=== PATIENT | female | born 1960 | race Hispanic/Latino ===

== ENCOUNTER 2016-12-06 09:42 | Inpatient (IN) | payer MEDICARE, MEDICAID, OTHER ==
--- NOTE | 2016-12-06 09:55 | ED PDOC ---
Arrival/HPI - General Time Seen by Provider: 12/06/16 09:44 Historian: Patient, EMS - History of Present Illness Narrative History of Present Illness (Text): 12/06/16 09:52 56 y/o female, pmh including htn/hyponatremia/pityriasis roscea, psychiatric history of bipolar/ocd/drug abuse/depression/suicidal ideation, nkda, biba for anxiety and suicidal ideation x 2 days. Pt. stated that she stopped her bipolar medication about 1 month ago, been crying alot and feeling suicidal due to her fiance jumped off the balcony which is on her current apartment, stated that she has been seeing him spiritually and telling her to jump off the balcony , no chest pain or shortness of breath, no change in vision, no headache or neck pain, no other medical or psychological complaints. Past Medical History - Provider Review Nursing Documentation Reviewed: Yes - Tetanus Immunization Tetanus Immunization: Unknown - Cardiac Hx Cardiac Disorders: No - Pulmonary Hx Respiratory Disorders: No - Neurological Hx Neurological Disorder: Yes HX Cerebrovascular Accident: No Hx Seizures: Yes - HEENT Hx HEENT Disorder: No - Renal Hx Renal Disorder: No - Endocrine/Metabolic Hx Endocrine Disorders: No - Hematological/Oncological Hx Blood Disorders: No Hx Cancer: No - Integumentary Hx Dermatological Disorder: No - Musculoskeletal/Rheumatological Hx Musculoskeletal Disorders: No Hx Falls: No - Gastrointestinal Hx Gastrointestinal Disorders: No - Genitourinary/Gynecological Hx Genitourinary Disorders: Yes Hx Sexually Transmitted Diseases: Yes (Herpes) - Psychiatric Hx Psychophysiologic Disorder: Yes (SUICIDAL) Hx Bipolar Disorder: Yes Hx Substance Use: Yes (crack) Other/Comment: Bordeline personality disorder - Past Surgical History Past Surgical History: Non-Contributing - Surgical History Hx Tubal Ligation: Yes Other/Comment: tubal ligation - Anesthesia Hx Anesthesia: Yes Hx Anesthesia Reactions: No Hx Malignant Hyperthermia: No - Suicidal Assessment Feels Threatened In Home Enviroment: No Family/Social History - Physician Review Nursing Documentation Reviewed: Yes Family/Social History: Unknown Family HX Smoking Status: Never Smoked Hx Alcohol Use: Yes (pt states she "binge drinks" 3 x week) Hx Substance Use: Yes (crack) Hx Substance Use Treatment: No Allergies/Home Meds Allergies/Adverse Reactions: Allergies cats Allergy (Uncoded 07/21/16 12:55) SHORTNESS OF BREATH Review of Systems - Review of Systems Constitutional: absent: Fatigue, Fevers Eyes: absent: Vision Changes ENT: absent: Hearing Changes Respiratory: absent: SOB, Cough Cardiovascular: absent: Chest Pain Gastrointestinal: absent: Abdominal Pain, Nausea, Vomiting Neurological: absent: Headache, Dizziness Psychiatric: Anxiety, Depression, Suicidal Ideation Physical Exam Vital Signs Temp Pulse Resp BP Pulse Ox 12/06/16 09:43 98.1 F 80 18 138/89 100 - Systems Exam Head: Present: Atraumatic, Normocephalic Pupils: Present: PERRL Extroacular Muscles: Present: EOMI Conjunctiva: Present: Normal Mouth: Present: Moist Mucous Membranes Neck: Present: Normal Range of Motion Respiratory/Chest: Present: Clear to Auscultation, Good Air Exchange. No: Respiratory Distress, Accessory Muscle Use Cardiovascular: Present: Regular Rate and Rhythm, Normal S1, S2. No: Murmurs Abdomen: Present: Normal Bowel Sounds. No: Tenderness, Distention, Peritoneal Signs Back: Present: Normal Inspection Upper Extremity: Present: Normal Inspection. No: Cyanosis, Edema Lower Extremity: Present: Normal Inspection. No: Edema Neurological: Present: GCS=15, Speech Normal, Motor Func Grossly Intact, Gait Normal, Memory Normal Skin: Present: Warm, Dry, Normal Color. No: Rashes Psychiatric: Present: Alert, Oriented x 3, Normal Insight, Normal Concentration , Anxious, Depressed Mood, Suicidal Ideation, Hallucinations Medical Decision Making ED Course and Treatment: 12/06/16 09:55 -labs/ua/uds -ekg/chest xray -PES paged and will come to evaluate the patient 12/06/16 11:32 -NSR @ 84 BPM, no ST elevation or depression, no T wave inversion, compared with previous ekg. -chest xray show no active disease -Labs are non-significiant with chronic hyponetremia 130 -PES Anaise evaluated the patient and discussed with the psychiatrist, suggest to admit psychiatrically as bipolar disorder to DR. Ca Turpin's service -I discussed with Dr. Norton about the case and he will put in the admission order. - Lab Interpretations Lab Results: 12/06/16 10:06 12/06/16 10:06 Lab Results 12/06/16 10:45: Urine Opiates Screen Negative, Urine Methadone Screen Negative, Ur Barbiturates Screen Negative, Ur Phencyclidine Scrn Negative, Ur Amphetamines Screen Negative, U Benzodiazepines Scrn Negative, U Oth Cocaine Metabols Negative, U Cannabinoids Screen Negative 12/06/16 10:45: Urine Color Yellow, Urine Appearance Clear, Urine pH 7.0, Ur Specific [place] <= 1.005, Urine Protein Negative, Urine Glucose (UA) Negative, Urine Ketones Trace H, Urine Blood Small H, Urine Nitrate Negative, Urine Bilirubin Negative, Urine Urobilinogen 0.2, Ur Leukocyte Esterase Negative, Urine RBC 0 - 2, Urine WBC 0 - 2 12/06/16 10:06: Alcohol, Quantitative < 10 12/06/16 10:06: Salicylates 13, Acetaminophen < 10.0 L 12/06/16 10:06: Sodium 130 L, Potassium 3.9, Chloride 95 L, Carbon Dioxide 22, Anion Gap 17, BUN 10, Creatinine 0.6, Est GFR ( Amer) > 60, Est GFR (Non- Af Amer) > 60, Random Glucose 104, Calcium 9.5, Total Bilirubin 0.4, AST 86 H, ALT 114 H, Alkaline Phosphatase 99, Total Protein 7.4, Albumin 4.3, Globulin 3.1 , Albumin/Globulin Ratio 1.4 12/06/16 10:06: WBC 6.6, RBC 4.06, Hgb 12.4, Hct 36.0, MCV 88.7, MCH 30.5, MCHC 34.4, RDW 13.7, Plt Count 268, MPV 9.2, Gran % 59.7, Lymph % (Auto) 28.5, [place] % (Auto) 8.0 H, Eos % (Auto) 3.5, Baso % (Auto) 0.3, Gran # 3.97, Lymph # 1.9, [place] # 0.5, Eos # 0.2, Baso # 0.02 I have reviewed the lab results: Yes Interpretation: No clinic. lab abnormalty - RAD Interpretation Radiology Orders: 12/06/16 10:06 CHEST PORTABLE [RAD] Stat no active disease Child Care Education Coordinator: Radiologist - EKG Interpretation EKG Interpretation (Text): 12/06/16 10:11 NSR @ 84 BPM, no ST elevation or depression, no T wave inversion, compared with previous ekg. Interpreted by ED Physician: Yes Type: 12 lead EKG Comparison: Com.w/previous EKG - PA / SKID ADZER / Resident Statement MD/DO has reviewed & agrees with the documentation as recorded. Disposition/Present on Arrival - Present on Arrival Any Indicators Present on Arrival: No History of DVT/PE: No History of Uncontrolled Diabetes: No Urinary Catheter: No History of Decub. Ulcer: No History Surgical Site Infection Following: None - Disposition Have Diagnosis and Disposition been Completed?: Yes Diagnosis: Bipolar disorder, curr episode mixed, severe, w/o psychotic features Disposition: HOSPITALIZED Disposition Time: 09:56 Patient Plan: Admission Condition: STABLE
[2016-12-06 10:11] VITALS: BMI 25.7
[2016-12-06 10:19] LABS: BASO # 0.02 K/mm3 (0.0-2.0); BASO % 0.3 % (0.0-3.0); EOS # 0.2 (0.0-0.7); EOS % 3.5 % (1.5-5.0); GRAN # 3.97 (1.4-6.5); GRAN % 59.7 % (50.0-68.0); HEMOGLOBIN 12.4 gm/dL (12.0-16.0); LYMPH # 1.9 (1.2-3.4); LYMPH % 28.5 % (22.0-35.0); MEAN CELL VOLUME 88.7 fL (80.0-105.0); MEAN CORPUSCULAR HEMOGLOBIN 30.5 pg (25.0-35.0); MEAN CORPUSCULAR HGB CONC 34.4 g/dl (31.0-37.0); MEAN PLATELET VOLUME 9.2 fl (7.0-11.0); MONO # 0.5 (0.1-0.6); PLATELET COUNT 268 10^3/uL (120.0-450.0); RBC 4.06 10^6/uL (3.5-6.1); RED CELL DISTRIBUTION WIDTH 13.7 % (11.5-14.5); WHITE BLOOD COUNT 6.6 10^3/ul (4.5-11.0)
[2016-12-06 10:28] LABS: ALB/GLOB RATIO 1.4 (1.1-1.8); ALBUMIN 4.3 g/dL (3.0-4.8); ALT/SGPT 114 U/L (7-56); AST/SGOT 86 U/L (15-39); BLOOD UREA NITROGEN 10 mg/dL (7-21); CALCIUM 9.5 mg/dL (8.4-10.5); GFR AFRICAN-AMERICAN > 60; GFR NON-AFRICAN AMERICAN > 60
[2016-12-06 10:29] LABS: SALICYLATE 13 mg/dL (2.0-20.0)
[2016-12-06 10:30] LABS: ACETAMINOPHEN < 10.0 ug/ml (10.0-20.0)
[2016-12-06 10:54] LABS: URINE APPEARANCE CLEAR (CLEAR); URINE BILIRUBIN NEGATIVE (NEGATIVE); URINE BLOOD SMALL (NEGATIVE); URINE COLOR YELLOW (YELLOW); URINE GLUCOSE (UA) NEGATIVE (NEGATIVE); URINE LEUKOCYTE ESTERASE NEGATIVE Leu/uL (NEGATIVE); URINE NITRATE NEGATIVE (NEGATIVE); URINE PROTEIN NEGATIVE mg/dL (<30 mg/dL); URINE UROBILINOGEN 0.2 E.U./dL (<1 E.U./dL)
--- NOTE | 2016-12-06 10:54 | RAD ---
HISTORY: medical clearance COMPARISON: 05/08/2016 FINDINGS: LUNGS: No active pulmonary disease. PLEURA: No significant pleural effusion identified, no pneumothorax apparent. CARDIOVASCULAR: Normal. OSSEOUS STRUCTURES: No significant abnormalities. VISUALIZED UPPER ABDOMEN: Normal. OTHER FINDINGS: None. IMPRESSION: No active disease.
[2016-12-06 11:05] LABS: URINE RBC 0 - 2 /hpf (0-2); URINE WBC 0 - 2 /hpf (0-6)
[2016-12-06 11:15] LABS: BARBITURATES, UR NEGATIVE (NEGATIVE); BENZODIAZEPINES, UR NEGATIVE (NEGATIVE); OPIATES, UR NEGATIVE (NEGATIVE); PHENCYCLIDINE, UR NEGATIVE (NEGATIVE)
--- NOTE | 2016-12-06 12:28 | CARD ---
APPROVED REPORT EKG Measurement Heart [id number] <Conclusion> Normal sinus rhythm Normal ECG
[2016-12-06] MEDS ORDERED: Alum-Mag Hydrox-Simethicone Susp (30 mL) PO PRN (12:38)
[2016-12-06] MEDS ORDERED: Magnesium Hydroxide Susp 30 ml UD PO PRN (12:38)
--- NOTE | 2016-12-06 16:30 | PCM.BM ---
<Heath Lopez - Last Filed: 12/06/16 16:30> Treatment Plan Problems - Problems identified on initial assessmt Hopelessness Date Initiated: 12/06/16 Time Initiated: 16:29 Assessment reference: NA Status: Active Priority: 1 Comment: Verbalizes feelings of depression and hopelessness Altered Sleep Patterns Date Initiated: 12/06/16 Time Initiated: 16:29 Assessment reference: NA Status: Active Priority: 2 Comment: States "I feel manic" and is unable to sleep Treatment assets and liabiliti Patient Assests: cooperative, insightful, self-reliant, ADL independent, negotiates basic needs, cognitively intact Patient Liabilities: live alone - Milieu Protocol Maintain good personal hygiene: daily Encourage regular showers, daily Remind patient to perform daily oral care, daily Assist patient to perform ADL's Maintain personal safety: every shift Educate patient to report safety concerns to staff, every shift Monitor environment for contraband/sharps Medication safety: Monitor for expected outcome, potential side effects: every shift, Assess barriers to learning: every shift, Assess readiness for medication education: every shift Family Contact - Goals for Treatment Patient goals for treatment: "to be safe, to no longer be angry, and get some structure back in my life" Discharge/Continuing Care - Education Needs Education Needs: Patient Medication, Patient Diagnosis/Disease Process, Patient Coping Skills, Patient Community resources, Patient Aftercare Safety Plan <Ca Shepard - Last Filed: 12/07/16 12:35> - Diagnosis (1) Bipolar disorder, current episode mixed, severe, with psychotic features Status: Acute Interventions: 12/07/16 12:36 Psychoeducation Psychopharmacology/adjustment of medications as needed/ monitoring possible side effects Monitor blood level of mood stabilizers Evaluate pt on daily basis Compliance with medications and follow up appointments Suicide and homicide risk assessment and prevention, coping strategies, safety plan Relapse prevention Reduction of symptoms Improve functional status Family intervention As outpatient: cognitive behavioral therapy (2) OCD (obsessive compulsive disorder) Status: Acute Interventions: 12/07/16 12:36 Psychoeducation Psychopharmacology/adjustment of medications as needed/ monitoring possible side effects Evaluate pt on daily basis Compliance with medications and follow up appointments Suicide and homicide risk assessment and prevention, coping strategies, safety plan Relapse prevention Reduction of symptoms Improve functional status Family intervention CBT, SSRI, exposure response prevention as outpatient Supportive therapy <Jackelin Casey Y - Last Filed: 12/09/16 13:55> Family Contact - Outside Agency [facility] Care involvment: Information-sharing Agency contact name: Samantha Homestead contact number: [phone] Discharge/Continuing Care - Education Needs Education Needs: Patient Medication, Patient Diagnosis/Disease Process, Patient Coping Skills, Patient Community resources, Patient Aftercare Safety Plan
--- NOTE | 2016-12-07 10:48 | PCM.BM ---
Treatment Plan Problems - Problems identified on initial assessmt Hopelessness Date Initiated: 12/06/16 Time Initiated: 16:29 Assessment reference: NA Status: Active Priority: 1 Comment: Verbalizes feelings of depression and hopelessness Altered Sleep Patterns Date Initiated: 12/06/16 Time Initiated: 16:29 Assessment reference: NA Status: Active Priority: 2 Comment: States "I feel manic" and is unable to sleep Treatment assets and liabiliti Patient Assests: cooperative, insightful, self-reliant, ADL independent, negotiates basic needs, cognitively intact Patient Liabilities: live alone - Milieu Protocol Maintain good personal hygiene: daily Encourage regular showers, daily Remind patient to perform daily oral care, daily Assist patient to perform ADL's Maintain personal safety: every shift Educate patient to report safety concerns to staff, every shift Monitor environment for contraband/sharps Medication safety: Monitor for expected outcome, potential side effects: every shift, Assess barriers to learning: every shift, Assess readiness for medication education: every shift Family Contact - Goals for Treatment Patient goals for treatment: "to be safe, to no longer be angry, and get some structure back in my life" Discharge/Continuing Care - Education Needs Education Needs: Patient Medication, Patient Diagnosis/Disease Process, Patient Coping Skills, Patient Community resources, Patient Aftercare Safety Plan
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
--- NOTE | 2016-12-07 13:36 | CP.PCM.CON ---
History of Present Illness - History of Present Illness History of Present Illness: 56 yo female admitted to psych unit for medical eval Review of Systems - Integumentary Integumentary: Rash - Psychiatric Psychiatric: Anxiety Past Patient History - Infectious Disease Hx of Infectious Diseases: None - Tetanus Immunizations Tetanus Immunization: Unknown - Past Medical History & Family History Past Medical History?: Yes - Past Social History Smoking Status: Never Smoked - CARDIAC Hx Cardiac Disorders: No - PULMONARY Hx Respiratory Disorders: No - NEUROLOGICAL Hx Neurological Disorder: Yes HX Cerebrovascular Accident: No Hx Seizures: Yes - HEENT Hx HEENT Problems: No - RENAL Hx Chronic Kidney Disease: No - ENDOCRINE/METABOLIC Hx Endocrine Disorders: No Other/Comment: hyponatremia - HEMATOLOGICAL/ONCOLOGICAL Hx Blood Disorders: No Hx Cancer: No - INTEGUMENTARY Hx Dermatological Problems: Yes (rash) - MUSCULOSKELETAL/RHEUMATOLOGICAL Hx Musculoskeletal Disorders: No Hx Falls: No - GASTROINTESTINAL Hx Gastrointestinal Disorders: No - GENITOURINARY/GYNECOLOGICAL Hx Genitourinary Disorders: Yes Hx Sexually Transmitted Disorders: Yes (Herpes) - PSYCHIATRIC Hx Psychophysiologic Disorder: Yes Hx Anxiety: Yes Hx Substance Use: Yes Other/Comment: possible compulsive water drinker - SURGICAL HISTORY Hx Tubal Ligation: Yes Other/Comment: tubal ligation - ANESTHESIA Hx Anesthesia: Yes Hx Anesthesia Reactions: No Hx Malignant Hyperthermia: No Meds Allergies/Adverse Reactions: Allergies Allergy/AdvReac Type Severity Reaction Status Date / Time cats Allergy SHORTNESS Uncoded 12/06/16 16:27 OF BREATH - Medications Medications: Current Medications Acetaminophen (Tylenol 325mg Tab) 650 mg PO Q6H PRN PRN Reason: Pain, Mild (1-3) Last Admin: 12/07/16 11:42 Dose: 650 mg Al Hydrox/Mg Hydrox/Simethicone (Maalox Plus 30 Ml) 30 ml PO DAILY PRN PRN Reason: Upset Stomach Aripiprazole (Abilify) 5 mg PO HS JIM Fluoxetine HCl (Prozac) 80 mg PO DAILY JIM Last Admin: 12/07/16 08:27 Dose: 80 mg Lorazepam (Ativan) 1 mg PO TID PRN; Protocol PRN Reason: Anxiety Magnesium Hydroxide (Milk Of Magnesia) 30 ml PO DAILY PRN PRN Reason: Constipation Trazodone HCl (Desyrel) 50 mg PO HS PRN PRN Reason: Insomnia Ziprasidone (Geodon Cap) 20 mg PO Q6H PRN; Protocol PRN Reason: Psychosis Ziprasidone (Geodon Inj) 20 mg IM Q6H PRN; Protocol PRN Reason: Psychosis Physical Exam - Head Exam Head Exam: NORMOCEPHALIC - Eye Exam Eye Exam: EOMI - ENT Exam ENT Exam: Mucous Membranes Moist - Neck Exam Neck exam: Positive for: Normal Inspection - Respiratory Exam Respiratory Exam: Clear to Auscultation Bilateral, NORMAL BREATHING PATTERN - Cardiovascular Exam Cardiovascular Exam: REGULAR RHYTHM - GI/Abdominal Exam GI & Abdominal Exam: Normal Bowel Sounds - Rectal Exam Rectal Exam: NORMAL INSPECTION - Back Exam Back exam: NORMAL INSPECTION - Neurological Exam Neurological exam: Alert, CN II-XII Intact, Oriented x3, Reflexes Normal Results - Vital Signs Recent Vital Signs: Last Vital Signs Temp 97.2 F L 12/07/16 10:00 Pulse 67 12/07/16 10:00 Resp 18 12/07/16 10:00 BP 95/68 L 12/07/16 06:57 Pulse Ox 99 12/06/16 11:43 - Labs Result Diagrams: 12/06/16 10:06 12/06/16 10:06 Assessment & Plan (1) Electrolyte imbalance Status: Acute (2) Hyponatremia Status: Acute - Date & Time Date: 12/07/16 Time: 13:00
--- NOTE | 2016-12-08 12:30 | CP.PCM.PN ---
Subjective - Date & Time of Evaluation Date of Evaluation: 12/08/16 Time of Evaluation: 09:00 - Subjective Subjective: nad, oob ambulating, less anxious Objective - Vital Signs/Intake and Output Vital Signs (last 24 hours): Temp Pulse Resp BP Pulse Ox 98.0 F 74 20 125/83 99 12/08/16 07:32 12/08/16 07:32 12/08/16 07:32 12/08/16 07:32 12/06/16 11:43 - Medications Medications: Current Medications Acetaminophen (Tylenol 325mg Tab) 650 mg PO Q6H PRN PRN Reason: Pain, Mild (1-3) Last Admin: 12/08/16 11:24 Dose: 650 mg Al Hydrox/Mg Hydrox/Simethicone (Maalox Plus 30 Ml) 30 ml PO DAILY PRN PRN Reason: Upset Stomach Aripiprazole (Abilify) 5 mg PO AMHS JIM Fluoxetine HCl (Prozac) 80 mg PO DAILY JIM Last Admin: 12/08/16 08:46 Dose: 80 mg Lorazepam (Ativan) 1 mg PO TID PRN; Protocol PRN Reason: Anxiety Magnesium Hydroxide (Milk Of Magnesia) 30 ml PO DAILY PRN PRN Reason: Constipation Trazodone HCl (Desyrel) 50 mg PO HS PRN PRN Reason: Insomnia Ziprasidone (Geodon Cap) 20 mg PO Q6H PRN; Protocol PRN Reason: Psychosis Ziprasidone (Geodon Inj) 20 mg IM Q6H PRN; Protocol PRN Reason: Psychosis - Respiratory Exam Respiratory Exam: Clear to Ausculation Bilateral, NORMAL BREATHING PATTERN - Cardiovascular Exam Cardiovascular Exam: REGULAR RHYTHM - GI/Abdominal Exam GI & Abdominal Exam: Soft, Normal Bowel Sounds - Extremities Exam Extremities Exam: Normal Inspection - Neurological Exam Neurological Exam: Alert, Awake, Oriented x3 Assessment and Plan (1) Electrolyte imbalance Status: Acute (2) Hyponatremia Status: Acute - Assessment and Plan (Free Text) Plan: repeat lytes (Na) in am, observe for compulsive water drinking
--- NOTE | 2016-12-08 12:38 | PCM.PYCHPN ---
Psychiatric Progress Note - Psychiatric Progress Note Patient seen today, length of contact: 30 minutes Patient Chief Complaint: "I slept well last night, I like abilify so far..." Problems Identified/Issues Discussed: Suicide/ homicide prevention, past psychiatric h/o, current psychiatric symptoms , medical problems, risk/benefits and alternatives of medications, medications compliance, coping strategies, substance abuse h/o, relapse prevention, importance of follow up with psychiatrist and therapist, discharge plan. Medical Problems: electrolyte imbalance, hyponatriemia pt was seen by , see notes for more detailed information Diagnostic Results: 12/06/16 10:06 12/06/16 10:06 Lab Results 12/06/16 10:45: Urine Opiates Screen Negative, Urine Methadone Screen Negative, Ur Barbiturates Screen Negative, Ur Phencyclidine Scrn Negative, Ur Amphetamines Screen Negative, U Benzodiazepines Scrn Negative, U Oth Cocaine Metabols Negative, U Cannabinoids Screen Negative 12/06/16 10:45: Urine Color Yellow, Urine Appearance Clear, Urine pH 7.0, Ur Specific [place] <= 1.005, Urine Protein Negative, Urine Glucose (UA) Negative, Urine Ketones Trace H, Urine Blood Small H, Urine Nitrate Negative, Urine Bilirubin Negative, Urine Urobilinogen 0.2, Ur Leukocyte Esterase Negative, Urine RBC 0 - 2, Urine WBC 0 - 2 12/06/16 10:06: Alcohol, Quantitative < 10 12/06/16 10:06: Salicylates 13, Acetaminophen < 10.0 L 12/06/16 10:06: Sodium 130 L, Potassium 3.9, Chloride 95 L, Carbon Dioxide 22, Anion Gap 17, BUN 10, Creatinine 0.6, Est GFR ( Amer) > 60, Est GFR (Non- Af Amer) > 60, Random Glucose 104, Calcium 9.5, Total Bilirubin 0.4, AST 86 H, ALT 114 H, Alkaline Phosphatase 99, Total Protein 7.4, Albumin 4.3, Globulin 3.1 , Albumin/Globulin Ratio 1.4 12/06/16 10:06: WBC 6.6, RBC 4.06, Hgb 12.4, Hct 36.0, MCV 88.7, MCH 30.5, MCHC 34.4, RDW 13.7, Plt Count 268, MPV 9.2, Gran % 59.7, Lymph % (Auto) 28.5, [place] % (Auto) 8.0 H, Eos % (Auto) 3.5, Baso % (Auto) 0.3, Gran # 3.97, Lymph # 1.9, [place] # 0.5, Eos # 0.2, Baso # 0.02 Vital Signs Temp Pulse Resp BP Pulse Ox 12/08/16 07:32 98.0 F 74 20 125/83 12/07/16 10:00 97.2 F L 67 18 12/07/16 06:57 97.8 F 74 20 95/68 L 12/06/16 16:00 62 139/88 12/06/16 13:00 18 12/06/16 11:43 97.8 F 73 15 142/87 99 12/06/16 09:43 98.1 F 80 18 138/89 100 DSM 5 Symptoms Update: Shortly, pt is 56yo Female with long h/o bipolar disorder, multiple hospitalizations in the past, most recent was in this facility on April 2016 , h/o suicidal attempts, was court mandated for DTP at [facility] (currently not), h/o alcohol dependence, currently collects disability for mental illness, mother of two, has 12yo low functioning autistic son (was adopted because pt was not able to control him), and 34yo son, was admitted to the psychiatric inpatient unit for evaluation and stabilization of manic/depressive episode with psychosis, possible suicidal ideation, no intent or plan, pt also had worsening of her OCD symptoms, was not able to function, was not attending DTP, pt's Lamictal was d/c abut a month ago because pt had a rash, since that time pt was feeling progressively worse, was obsessed with , needs further evaluation and stabilization and medications titration. Pt was seen at the treatment team room today, presented with good personal hygiene, fare ADLs, pt looks younger her chronological age, seems to be in better mood. Pt said that she had a good night sleep, so far she likes Abilify. pt said "I cannot believe that I did it to myself, I screw up again", pt seems to be depressed and guilty. pt still has circumstantial thought process, overproductive speech, but no psychotic symptoms today. pt started to attend groups, no behavioral incidents. pt tolerated meds well, no side effects observed or reported, AIMS 0, no EPS. Impression: bipolar disorder, most recent episode mixed with psychosis OCD Medication Change: Yes (abilify increased) Medical Record Reviewed: Yes (labs, notes) Consults ordered or reviewed: consult appreciated Mental Status Examination - Cognitive Function Orientation: Person, Place, Situation, Time Memory: Intact Attention: Poor Concentration: Poor Association: Loose Fund of Knowledge: WNL - Mood Mood: Depressed ("I feel little better today"), Anxious - Affect Affect: Flat - Formal Thought Process Formal Thought Process: Hallucinations (denied), Delusions (deneid), Circumstantial - Suicidal Ideation Suicidal Ideation: No - Homicidal Ideation Homicidal Ideation: No Goal/Treatment Plan - Goal/Treatment Plan Need for Continued Stay: Remain at risks for inpatient hospitalization, Severe depression anxiety, Discharge may exacerbated symptoms, Severe functional impairment Progress Toward Problem(s) and Goals/Treatment Plan: Milieu/structure/supportive therapy Prozac 80daily for depression, ocd pt was given geodon, but did not like the medication, was d/c will increase abilify 5mg amhs, for mood stabilization, psychosis and adjunct for depression medical consultation appreciated will give meds for insomnia as needed PRN meds will not resume Lamictal will monitor closely Estimated Date of D/C: 12/15/16 (will monitor closely)
[2016-12-09 08:51] LABS: ALB/GLOB RATIO 1.5 (1.1-1.8); ALBUMIN 4.5 g/dL (3.0-4.8); ALT/SGPT 77 U/L (7-56); AST/SGOT 37 U/L (15-39); BLOOD UREA NITROGEN 9 mg/dL (7-21); CALCIUM 9.6 mg/dL (8.4-10.5); GFR AFRICAN-AMERICAN > 60; GFR NON-AFRICAN AMERICAN > 60
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
--- NOTE | 2016-12-09 15:24 | CP.PCM.PN ---
Subjective - Date & Time of Evaluation Date of Evaluation: 12/09/16 Time of Evaluation: 11:15 - Subjective Subjective: NAD Objective - Vital Signs/Intake and Output Vital Signs (last 24 hours): Temp Pulse Resp BP Pulse Ox 98.2 F 67 20 126/88 99 12/09/16 07:50 12/09/16 07:50 12/09/16 07:50 12/09/16 07:50 12/06/16 11:43 - Medications Medications: Current Medications Acetaminophen (Tylenol 325mg Tab) 650 mg PO Q6H PRN PRN Reason: Pain, Mild (1-3) Last Admin: 12/09/16 06:39 Dose: 650 mg Al Hydrox/Mg Hydrox/Simethicone (Maalox Plus 30 Ml) 30 ml PO DAILY PRN PRN Reason: Upset Stomach Aripiprazole (Abilify) 5 mg PO AMHS JIM Last Admin: 12/08/16 21:50 Dose: 5 mg Fluoxetine HCl (Prozac) 80 mg PO DAILY JIM Last Admin: 12/09/16 08:06 Dose: 80 mg Lorazepam (Ativan) 1 mg PO TID PRN; Protocol PRN Reason: Anxiety Last Admin: 12/08/16 17:01 Dose: 1 mg Magnesium Hydroxide (Milk Of Magnesia) 30 ml PO DAILY PRN PRN Reason: Constipation Sodium Chloride ([place] Nasal [place]) 1 ml NS Q4H PRN PRN Reason: Nasal congestion Last Admin: 12/09/16 06:40 Dose: 1 spr Trazodone HCl (Desyrel) 50 mg PO HS PRN PRN Reason: Insomnia Ziprasidone (Geodon Cap) 20 mg PO Q6H PRN; Protocol PRN Reason: Psychosis Ziprasidone (Geodon Inj) 20 mg IM Q6H PRN; Protocol PRN Reason: Psychosis - Labs Labs: 12/09/16 08:00 - Respiratory Exam Respiratory Exam: Clear to Ausculation Bilateral, NORMAL BREATHING PATTERN - Cardiovascular Exam Cardiovascular Exam: REGULAR RHYTHM - GI/Abdominal Exam GI & Abdominal Exam: Soft, Normal Bowel Sounds - Extremities Exam Extremities Exam: Normal Inspection - Neurological Exam Neurological Exam: Awake, Oriented x3 - Skin Skin Exam: Normal Color, Warm Assessment and Plan (1) Electrolyte imbalance Status: Acute (2) Hyponatremia Status: Acute
--- NOTE | 2016-12-10 10:00 | CP.PCM.PN ---
Subjective - Date & Time of Evaluation Date of Evaluation: 12/10/16 Time of Evaluation: 09:45 - Subjective Subjective: NAD Objective - Vital Signs/Intake and Output Vital Signs (last 24 hours): Temp Pulse Resp BP Pulse Ox 98.2 F 111 H 20 104/74 99 12/10/16 07:10 12/10/16 07:10 12/10/16 07:10 12/10/16 07:10 12/06/16 11:43 - Medications Medications: Current Medications Acetaminophen (Tylenol 325mg Tab) 650 mg PO Q6H PRN PRN Reason: Pain, Mild (1-3) Last Admin: 12/10/16 06:22 Dose: 650 mg Al Hydrox/Mg Hydrox/Simethicone (Maalox Plus 30 Ml) 30 ml PO DAILY PRN PRN Reason: Upset Stomach Aripiprazole (Abilify) 5 mg PO AMHS JIM Last Admin: 12/10/16 09:27 Dose: 5 mg Fluoxetine HCl (Prozac) 80 mg PO DAILY JIM Last Admin: 12/10/16 09:25 Dose: 80 mg Lorazepam (Ativan) 1 mg PO TID PRN; Protocol PRN Reason: Anxiety Last Admin: 12/08/16 17:01 Dose: 1 mg Magnesium Hydroxide (Milk Of Magnesia) 30 ml PO DAILY PRN PRN Reason: Constipation Sodium Chloride ([place] Nasal [place]) 1 ml NS Q4H PRN PRN Reason: Nasal congestion Last Admin: 12/10/16 06:22 Dose: 1 spr Trazodone HCl (Desyrel) 50 mg PO HS PRN PRN Reason: Insomnia Last Admin: 12/09/16 22:08 Dose: 50 mg Ziprasidone (Geodon Cap) 20 mg PO Q6H PRN; Protocol PRN Reason: Psychosis Ziprasidone (Geodon Inj) 20 mg IM Q6H PRN; Protocol PRN Reason: Psychosis - Labs Labs: 12/09/16 08:00 - Respiratory Exam Respiratory Exam: Clear to Ausculation Bilateral, NORMAL BREATHING PATTERN - Cardiovascular Exam Cardiovascular Exam: REGULAR RHYTHM - GI/Abdominal Exam GI & Abdominal Exam: Soft, Normal Bowel Sounds - Neurological Exam Neurological Exam: Alert, Awake Assessment and Plan (1) Electrolyte imbalance Status: Acute (2) Hyponatremia Status: Acute - Assessment and Plan (Free Text) Plan: monitor lytes, advised pt fluid restriction, exctven2dir Na intake
--- NOTE | 2016-12-10 13:38 | PCM.PYCHPN ---
Psychiatric Progress Note - Psychiatric Progress Note Patient seen today, length of contact: 30 minutes Patient Chief Complaint: "I was obsessed with my thoughts, I was not able to sleep" Problems Identified/Issues Discussed: Suicide/ homicide prevention, past psychiatric h/o, current psychiatric symptoms , medical problems, risk/benefits and alternatives of medications, medications compliance, coping strategies, substance abuse h/o, relapse prevention, importance of follow up with psychiatrist and therapist, discharge plan. Medical Problems: electrolyte imbalance, hyponatriemia pt was seen by , see notes for more detailed information Diagnostic Results: 12/06/16 10:06 12/06/16 10:06 Lab Results 12/06/16 10:45: Urine Opiates Screen Negative, Urine Methadone Screen Negative, Ur Barbiturates Screen Negative, Ur Phencyclidine Scrn Negative, Ur Amphetamines Screen Negative, U Benzodiazepines Scrn Negative, U Oth Cocaine Metabols Negative, U Cannabinoids Screen Negative 12/06/16 10:45: Urine Color Yellow, Urine Appearance Clear, Urine pH 7.0, Ur Specific [place] <= 1.005, Urine Protein Negative, Urine Glucose (UA) Negative, Urine Ketones Trace H, Urine Blood Small H, Urine Nitrate Negative, Urine Bilirubin Negative, Urine Urobilinogen 0.2, Ur Leukocyte Esterase Negative, Urine RBC 0 - 2, Urine WBC 0 - 2 12/06/16 10:06: Alcohol, Quantitative < 10 12/06/16 10:06: Salicylates 13, Acetaminophen < 10.0 L 12/06/16 10:06: Sodium 130 L, Potassium 3.9, Chloride 95 L, Carbon Dioxide 22, Anion Gap 17, BUN 10, Creatinine 0.6, Est GFR ( Amer) > 60, Est GFR (Non- Af Amer) > 60, Random Glucose 104, Calcium 9.5, Total Bilirubin 0.4, AST 86 H, ALT 114 H, Alkaline Phosphatase 99, Total Protein 7.4, Albumin 4.3, Globulin 3.1 , Albumin/Globulin Ratio 1.4 12/06/16 10:06: WBC 6.6, RBC 4.06, Hgb 12.4, Hct 36.0, MCV 88.7, MCH 30.5, MCHC 34.4, RDW 13.7, Plt Count 268, MPV 9.2, Gran % 59.7, Lymph % (Auto) 28.5, [place] % (Auto) 8.0 H, Eos % (Auto) 3.5, Baso % (Auto) 0.3, Gran # 3.97, Lymph # 1.9, [place] # 0.5, Eos # 0.2, Baso # 0.02 Vital Signs Temp Pulse Resp BP Pulse Ox 12/08/16 07:32 98.0 F 74 20 125/83 12/07/16 10:00 97.2 F L 67 18 12/07/16 06:57 97.8 F 74 20 95/68 L 12/06/16 16:00 62 139/88 12/06/16 13:00 18 12/06/16 11:43 97.8 F 73 15 142/87 99 12/06/16 09:43 98.1 F 80 18 138/89 100 Temp Pulse Resp BP Pulse Ox 98.2 F 67 20 126/88 99 12/09/16 07:50 12/09/16 07:50 12/09/16 07:50 12/09/16 07:50 12/06/16 11:43 Temp Pulse Resp BP Pulse Ox 98.2 F 111 H 20 104/74 99 12/10/16 07:10 12/10/16 07:10 12/10/16 07:10 12/10/16 07:10 12/06/16 11:43 DSM 5 Symptoms Update: Shortly, pt is 56yo Female with long h/o bipolar disorder, multiple hospitalizations in the past, most recent was in this facility on April 2016 , h/o suicidal attempts, was court mandated for DTP at [facility] (currently not), h/o alcohol dependence, currently collects disability for mental illness, mother of two, has 12yo low functioning autistic son (was adopted because pt was not able to control him), and 34yo son, was admitted to the psychiatric inpatient unit for evaluation and stabilization of manic/depressive episode with psychosis, possible suicidal ideation, no intent or plan, pt also had worsening of her OCD symptoms, was not able to function, was not attending DTP, pt's Lamictal was d/c abut a month ago because pt had a rash, since that time pt was feeling progressively worse, was obsessed with , needs further evaluation and stabilization and medications titration. Pt was seen At the dining area, presented with good personal hygiene, fare ADLs , pt looks younger her chronological age, patient seems to be depressed and anxious mood today, patient reported that she didn't sleep last night, patient reported that she was obsessed with her thoughts,"my mother had a will for her house, she divided it into three parts among three of us, my brothers and me. I don't want to have my part, because if I will have these amount of money, I will probably will use it on drugs, moreover I will lose my apartment, health benefits... these things were bothering me", pt was advised to have consultation with the paper stripper, pt will do so. overall present better, but still has depressed mood and obsessive thoughts. so far she likes Abilify. pt said "I feel better because I am around people and I am not seeing that neighbour". pt still has circumstantial thought process, overproductive speech, but no psychotic symptoms today. pt started to attend groups, no behavioral incidents. pt tolerated meds well, no side effects observed or reported, AIMS 0, no EPS. Impression: bipolar disorder, most recent episode mixed with psychosis OCD Medication Change: Yes (trazodone was increased) Medical Record Reviewed: Yes (labs, notes) Consults ordered or reviewed: consult appreciated Mental Status Examination - Cognitive Function Orientation: Person, Place, Situation, Time Memory: Intact Attention: Poor (some improvement) Concentration: Poor (some improvement) Association: WNL Fund of Knowledge: WNL - Mood Mood: Depressed ("I feel little better today"), Anxious (I'm I anxious, obsessed ) - Affect Affect: Constricted (ut more reactive today) - Speech Speech: Appropriate (ut overproductive) - Formal Thought Process Formal Thought Process: Hallucinations (denied), Delusions (deneid), Circumstantial - Suicidal Ideation Suicidal Ideation: No - Homicidal Ideation Homicidal Ideation: No Goal/Treatment Plan - Goal/Treatment Plan Need for Continued Stay: Remain at risks for inpatient hospitalization, Severe depression anxiety, Discharge may exacerbated symptoms, Severe functional impairment Progress Toward Problem(s) and Goals/Treatment Plan: Milieu/structure/supportive therapy Prozac 80daily for depression, ocd abilify 5mg amhs, for mood stabilization, psychosis and adjunct for depression trazodone 100 mg at the nighttime as needed for insomnia. medical consultation appreciated will give meds for insomnia as needed PRN meds will not resume Lamictal will monitor closely Estimated Date of D/C: 12/15/16 (will monitor closely)
--- NOTE | 2016-12-11 12:29 | PCM.PYCHPN ---
Psychiatric Progress Note - Psychiatric Progress Note Patient seen today, length of contact: 30 minutes Patient Chief Complaint: "I feel little better" Problems Identified/Issues Discussed: Suicide/ homicide prevention, past psychiatric h/o, current psychiatric symptoms , medical problems, risk/benefits and alternatives of medications, medications compliance, coping strategies, substance abuse h/o, relapse prevention, importance of follow up with psychiatrist and therapist, discharge plan. Medical Problems: electrolyte imbalance, hyponatriemia pt was seen by , see notes for more detailed information Diagnostic Results: 12/06/16 10:06 12/06/16 10:06 Lab Results 12/06/16 10:45: Urine Opiates Screen Negative, Urine Methadone Screen Negative, Ur Barbiturates Screen Negative, Ur Phencyclidine Scrn Negative, Ur Amphetamines Screen Negative, U Benzodiazepines Scrn Negative, U Oth Cocaine Metabols Negative, U Cannabinoids Screen Negative 12/06/16 10:45: Urine Color Yellow, Urine Appearance Clear, Urine pH 7.0, Ur Specific [place] <= 1.005, Urine Protein Negative, Urine Glucose (UA) Negative, Urine Ketones Trace H, Urine Blood Small H, Urine Nitrate Negative, Urine Bilirubin Negative, Urine Urobilinogen 0.2, Ur Leukocyte Esterase Negative, Urine RBC 0 - 2, Urine WBC 0 - 2 12/06/16 10:06: Alcohol, Quantitative < 10 12/06/16 10:06: Salicylates 13, Acetaminophen < 10.0 L 12/06/16 10:06: Sodium 130 L, Potassium 3.9, Chloride 95 L, Carbon Dioxide 22, Anion Gap 17, BUN 10, Creatinine 0.6, Est GFR ( Amer) > 60, Est GFR (Non- Af Amer) > 60, Random Glucose 104, Calcium 9.5, Total Bilirubin 0.4, AST 86 H, ALT 114 H, Alkaline Phosphatase 99, Total Protein 7.4, Albumin 4.3, Globulin 3.1 , Albumin/Globulin Ratio 1.4 12/06/16 10:06: WBC 6.6, RBC 4.06, Hgb 12.4, Hct 36.0, MCV 88.7, MCH 30.5, MCHC 34.4, RDW 13.7, Plt Count 268, MPV 9.2, Gran % 59.7, Lymph % (Auto) 28.5, [place] % (Auto) 8.0 H, Eos % (Auto) 3.5, Baso % (Auto) 0.3, Gran # 3.97, Lymph # 1.9, [place] # 0.5, Eos # 0.2, Baso # 0.02 Vital Signs Temp Pulse Resp BP Pulse Ox 12/08/16 07:32 98.0 F 74 20 125/83 12/07/16 10:00 97.2 F L 67 18 12/07/16 06:57 97.8 F 74 20 95/68 L 12/06/16 16:00 62 139/88 12/06/16 13:00 18 12/06/16 11:43 97.8 F 73 15 142/87 99 12/06/16 09:43 98.1 F 80 18 138/89 100 Temp Pulse Resp BP Pulse Ox 98.2 F 67 20 126/88 99 12/09/16 07:50 12/09/16 07:50 12/09/16 07:50 12/09/16 07:50 12/06/16 11:43 Temp Pulse Resp BP Pulse Ox 98.2 F 111 H 20 104/74 99 12/10/16 07:10 12/10/16 07:10 12/10/16 07:10 12/10/16 07:10 12/06/16 11:43 DSM 5 Symptoms Update: Shortly, pt is 56yo Female with long h/o bipolar disorder, multiple hospitalizations in the past, most recent was in this facility on April 2016 , h/o suicidal attempts, was court mandated for DTP at [facility] (currently not), h/o alcohol dependence, currently collects disability for mental illness, mother of two, has 12yo low functioning autistic son (was adopted because pt was not able to control him), and 34yo son, was admitted to the psychiatric inpatient unit for evaluation and stabilization of manic/depressive episode with psychosis, possible suicidal ideation, no intent or plan, pt also had worsening of her OCD symptoms, was not able to function, was not attending DTP, pt's Lamictal was d/c abut a month ago because pt had a rash, since that time pt was feeling progressively worse, was obsessed with , needs further evaluation and stabilization and medications titration. Pt was seen At the dining area, presented with good personal hygiene, fare ADLs , pt looks younger her chronological age, patient seems to be depressed and anxious mood today, patient reported that she didn't sleep last night, pt wants to be continued on abilify 10mg daily. pt said that she spoke to one of the nurses and felt better about her obsessed thoughts. overall present better, but still has depressed mood and obsessive thoughts. pt still has circumstantial thought process, overproductive speech, but no psychotic symptoms today. pt started to attend groups, no behavioral incidents. pt tolerated meds well, no side effects observed or reported, AIMS 0, no EPS. Impression: bipolar disorder, most recent episode mixed with psychosis OCD Medication Change: No (adjusted yesterday) Medical Record Reviewed: Yes (labs, notes) Consults ordered or reviewed: consult appreciated Mental Status Examination - Cognitive Function Orientation: Person, Place, Situation, Time Memory: Intact Attention: Poor (some improvement) Concentration: Poor (some improvement) Association: WNL Fund of Knowledge: WNL - Mood Mood: Depressed ("I feel little better today"), Anxious (I'm I anxious, obsessed ) - Affect Affect: Constricted (ut more reactive today) - Speech Speech: Appropriate (ut overproductive) - Formal Thought Process Formal Thought Process: Hallucinations (denied), Delusions (deneid), Circumstantial - Suicidal Ideation Suicidal Ideation: No - Homicidal Ideation Homicidal Ideation: No Goal/Treatment Plan - Goal/Treatment Plan Need for Continued Stay: Remain at risks for inpatient hospitalization, Severe depression anxiety, Discharge may exacerbated symptoms, Severe functional impairment Progress Toward Problem(s) and Goals/Treatment Plan: Milieu/structure/supportive therapy Prozac 80daily for depression, ocd abilify 5mg amhs, for mood stabilization, psychosis and adjunct for depression trazodone 100 mg at the nighttime as needed for insomnia. medical consultation appreciated will give meds for insomnia as needed PRN meds will not resume Lamictal will monitor closely Estimated Date of D/C: 12/15/16 (will monitor closely)
--- NOTE | 2016-12-11 12:46 | CP.PCM.PN ---
Subjective - Date & Time of Evaluation Date of Evaluation: 12/11/16 Time of Evaluation: 11:15 - Subjective Subjective: c/o nasal congestion, unrelieved by saline spray Objective - Vital Signs/Intake and Output Vital Signs (last 24 hours): Temp Pulse Resp BP Pulse Ox 97.3 F L 74 17 110/64 99 12/11/16 10:00 12/11/16 10:00 12/11/16 10:00 12/11/16 10:00 12/06/16 11:43 - Medications Medications: Current Medications Acetaminophen (Tylenol 325mg Tab) 650 mg PO Q6H PRN PRN Reason: Pain, Mild (1-3) Last Admin: 12/10/16 19:15 Dose: 650 mg Al Hydrox/Mg Hydrox/Simethicone (Maalox Plus 30 Ml) 30 ml PO DAILY PRN PRN Reason: Upset Stomach Aripiprazole (Abilify) 5 mg PO AMHS JIM Last Admin: 12/11/16 09:11 Dose: 5 mg Fluoxetine HCl (Prozac) 80 mg PO DAILY JIM Last Admin: 12/11/16 09:11 Dose: 80 mg Lorazepam (Ativan) 1 mg PO TID PRN; Protocol PRN Reason: Anxiety Last Admin: 12/08/16 17:01 Dose: 1 mg Magnesium Hydroxide (Milk Of Magnesia) 30 ml PO DAILY PRN PRN Reason: Constipation Sodium Chloride ([place] Nasal [place]) 1 ml NS Q4H PRN PRN Reason: Nasal congestion Last Admin: 12/10/16 19:14 Dose: 1 spr Trazodone HCl (Desyrel) 100 mg PO HS PRN PRN Reason: Insomnia Last Admin: 12/10/16 21:29 Dose: 100 mg Ziprasidone (Geodon Cap) 20 mg PO Q6H PRN; Protocol PRN Reason: Psychosis Ziprasidone (Geodon Inj) 20 mg IM Q6H PRN; Protocol PRN Reason: Psychosis - Labs Labs: 12/09/16 08:00 - Respiratory Exam Respiratory Exam: Clear to Ausculation Bilateral, NORMAL BREATHING PATTERN - Cardiovascular Exam Cardiovascular Exam: REGULAR RHYTHM - GI/Abdominal Exam GI & Abdominal Exam: Soft, Normal Bowel Sounds - Extremities Exam Extremities Exam: Normal Inspection - Neurological Exam Neurological Exam: Alert, Awake - Skin Skin Exam: Dry, Warm Assessment and Plan (1) Electrolyte imbalance Status: Acute (2) Hyponatremia Status: Acute (3) Allergic rhinitis Status: Acute - Assessment and Plan (Free Text) Plan: flonase nasal spray, monitor lytes
[2016-12-11] MEDS: Fluticasone Nasal 50 mcg/Spray NS SCH (13:20)
[2016-12-12 07:52] LABS: ALB/GLOB RATIO 1.4 (1.1-1.8); ALBUMIN 4.3 g/dL (3.0-4.8); ALT/SGPT 49 U/L (7-56); AST/SGOT 25 U/L (15-39); BLOOD UREA NITROGEN 15 mg/dL (7-21); CALCIUM 9.7 mg/dL (8.4-10.5); GFR AFRICAN-AMERICAN > 60; GFR NON-AFRICAN AMERICAN > 60
[2016-12-12] MEDS: Fluticasone Nasal 50 mcg/Spray NS SCH (09:05)
--- NOTE | 2016-12-12 14:10 | PCM.PYCHPN ---
Psychiatric Progress Note - Psychiatric Progress Note Patient seen today, length of contact: 30 minutes Patient Chief Complaint: "I was feeling sleepy on abilify..." Problems Identified/Issues Discussed: Suicide/ homicide prevention, past psychiatric h/o, current psychiatric symptoms , medical problems, risk/benefits and alternatives of medications, medications compliance, coping strategies, substance abuse h/o, relapse prevention, importance of follow up with psychiatrist and therapist, discharge plan. Medical Problems: electrolyte imbalance, hyponatriemia pt was seen by , see notes for more detailed information Diagnostic Results: 12/06/16 10:06 12/06/16 10:06 Lab Results 12/06/16 10:45: Urine Opiates Screen Negative, Urine Methadone Screen Negative, Ur Barbiturates Screen Negative, Ur Phencyclidine Scrn Negative, Ur Amphetamines Screen Negative, U Benzodiazepines Scrn Negative, U Oth Cocaine Metabols Negative, U Cannabinoids Screen Negative 12/06/16 10:45: Urine Color Yellow, Urine Appearance Clear, Urine pH 7.0, Ur Specific [place] <= 1.005, Urine Protein Negative, Urine Glucose (UA) Negative, Urine Ketones Trace H, Urine Blood Small H, Urine Nitrate Negative, Urine Bilirubin Negative, Urine Urobilinogen 0.2, Ur Leukocyte Esterase Negative, Urine RBC 0 - 2, Urine WBC 0 - 2 12/06/16 10:06: Alcohol, Quantitative < 10 12/06/16 10:06: Salicylates 13, Acetaminophen < 10.0 L 12/06/16 10:06: Sodium 130 L, Potassium 3.9, Chloride 95 L, Carbon Dioxide 22, Anion Gap 17, BUN 10, Creatinine 0.6, Est GFR ( Amer) > 60, Est GFR (Non- Af Amer) > 60, Random Glucose 104, Calcium 9.5, Total Bilirubin 0.4, AST 86 H, ALT 114 H, Alkaline Phosphatase 99, Total Protein 7.4, Albumin 4.3, Globulin 3.1 , Albumin/Globulin Ratio 1.4 12/06/16 10:06: WBC 6.6, RBC 4.06, Hgb 12.4, Hct 36.0, MCV 88.7, MCH 30.5, MCHC 34.4, RDW 13.7, Plt Count 268, MPV 9.2, Gran % 59.7, Lymph % (Auto) 28.5, [place] % (Auto) 8.0 H, Eos % (Auto) 3.5, Baso % (Auto) 0.3, Gran # 3.97, Lymph # 1.9, [place] # 0.5, Eos # 0.2, Baso # 0.02 Vital Signs Temp Pulse Resp BP Pulse Ox 12/08/16 07:32 98.0 F 74 20 125/83 12/07/16 10:00 97.2 F L 67 18 12/07/16 06:57 97.8 F 74 20 95/68 L 12/06/16 16:00 62 139/88 12/06/16 13:00 18 12/06/16 11:43 97.8 F 73 15 142/87 99 12/06/16 09:43 98.1 F 80 18 138/89 100 Temp Pulse Resp BP Pulse Ox 98.2 F 67 20 126/88 99 12/09/16 07:50 12/09/16 07:50 12/09/16 07:50 12/09/16 07:50 12/06/16 11:43 Temp Pulse Resp BP Pulse Ox 98.2 F 111 H 20 104/74 99 12/10/16 07:10 12/10/16 07:10 12/10/16 07:10 12/10/16 07:10 12/06/16 11:43 Temp Pulse Resp BP Pulse Ox 97.6 F 69 20 121/80 99 12/12/16 07:25 12/12/16 07:25 12/12/16 07:25 12/12/16 07:25 12/06/16 11:43 DSM 5 Symptoms Update: Shortly, pt is 56yo Female with long h/o bipolar disorder, multiple hospitalizations in the past, most recent was in this facility on April 2016 , h/o suicidal attempts, was court mandated for DTP at [facility] (currently not), h/o alcohol dependence, currently collects disability for mental illness, mother of two, has 12yo low functioning autistic son (was adopted because pt was not able to control him), and 34yo son, was admitted to the psychiatric inpatient unit for evaluation and stabilization of manic/depressive episode with psychosis, possible suicidal ideation, no intent or plan, pt also had worsening of her OCD symptoms, was not able to function, was not attending DTP, pt's Lamictal was d/c abut a month ago because pt had a rash, since that time pt was feeling progressively worse, was obsessed with , needs further evaluation and stabilization and medications titration. Pt was seen At the dining area, presented with good personal hygiene, fare ADLs , pt looks younger her chronological age, patient seems to be anxious today, pt said that abilify made her tired at the morning asked to give at the night time , reported to have a good night sleep. pt said her mood is "little better, when I will be discharged?". as per RN report pt is compliant with meds, socially appropriate. this junior technical writer discussed case with today. pt still has circumstantial thought process, overproductive speech, but no psychotic symptoms today. pt started to attend groups, no behavioral incidents. pt tolerated meds well, no side effects observed or reported, AIMS 0, no EPS. Impression: bipolar disorder, most recent episode mixed with psychosis OCD Medication Change: Yes (abilify 6pm and hs) Medical Record Reviewed: Yes (labs, notes) Consults ordered or reviewed: consult appreciated Mental Status Examination - Cognitive Function Orientation: Person, Place, Situation, Time Memory: Intact Attention: Poor (some improvement) Concentration: Poor (some improvement) Association: WNL Fund of Knowledge: WNL - Mood Mood: Depressed ("I feel little better today"), Anxious (I'm I anxious, obsessed ) - Affect Affect: Constricted (ut more reactive today) - Speech Speech: Appropriate (ut overproductive) - Formal Thought Process Formal Thought Process: Hallucinations (denied), Delusions (deneid), Circumstantial - Suicidal Ideation Suicidal Ideation: No - Homicidal Ideation Homicidal Ideation: No Goal/Treatment Plan - Goal/Treatment Plan Need for Continued Stay: Remain at risks for inpatient hospitalization, Severe depression anxiety, Discharge may exacerbated symptoms, Severe functional impairment Progress Toward Problem(s) and Goals/Treatment Plan: Milieu/structure/supportive therapy Prozac 80daily for depression, ocd abilify 5mg 1600 and hs, for mood stabilization, psychosis and adjunct for depression trazodone 100 mg at the nighttime as needed for insomnia. medical consultation appreciated will give meds for insomnia as needed PRN meds will not resume Lamictal will monitor closely Estimated Date of D/C: 12/15/16 (will monitor closely)
--- NOTE | 2016-12-12 14:19 | CP.PCM.PN ---
Subjective - Date & Time of Evaluation Date of Evaluation: 12/12/16 Time of Evaluation: 09:00 - Subjective Subjective: nad Objective - Vital Signs/Intake and Output Vital Signs (last 24 hours): Temp Pulse Resp BP Pulse Ox 97.6 F 69 20 121/80 99 12/12/16 07:25 12/12/16 07:25 12/12/16 07:25 12/12/16 07:25 12/06/16 11:43 - Medications Medications: Current Medications Acetaminophen (Tylenol 325mg Tab) 650 mg PO Q6H PRN PRN Reason: Pain, Mild (1-3) Last Admin: 12/10/16 19:15 Dose: 650 mg Al Hydrox/Mg Hydrox/Simethicone (Maalox Plus 30 Ml) 30 ml PO DAILY PRN PRN Reason: Upset Stomach Aripiprazole (Abilify) 5 mg PO HS JIM Aripiprazole (Abilify) 5 mg PO 1600 JIM Fluoxetine HCl (Prozac) 80 mg PO DAILY JIM Last Admin: 12/12/16 09:05 Dose: 80 mg Fluticasone Propionate (Flonase) 1 actuation NS DAILY JIM Last Admin: 12/12/16 09:05 Dose: 1 actuation Lorazepam (Ativan) 1 mg PO TID PRN; Protocol PRN Reason: Anxiety Last Admin: 12/08/16 17:01 Dose: 1 mg Magnesium Hydroxide (Milk Of Magnesia) 30 ml PO DAILY PRN PRN Reason: Constipation Sodium Chloride ([place] Nasal [place]) 1 ml NS Q4H PRN PRN Reason: Nasal congestion Last Admin: 12/11/16 14:22 Dose: 1 spr Trazodone HCl (Desyrel) 100 mg PO HS PRN PRN Reason: Insomnia Last Admin: 12/11/16 21:01 Dose: 100 mg Ziprasidone (Geodon Cap) 20 mg PO Q6H PRN; Protocol PRN Reason: Psychosis Ziprasidone (Geodon Inj) 20 mg IM Q6H PRN; Protocol PRN Reason: Psychosis - Labs Labs: 12/12/16 07:15 - Respiratory Exam Respiratory Exam: Clear to Ausculation Bilateral, NORMAL BREATHING PATTERN - Cardiovascular Exam Cardiovascular Exam: REGULAR RHYTHM - GI/Abdominal Exam GI & Abdominal Exam: Soft, Normal Bowel Sounds - Extremities Exam Extremities Exam: Normal Inspection - Neurological Exam Neurological Exam: Alert, Awake, Oriented x3 - Skin Skin Exam: Dry, Normal Color, Warm Assessment and Plan (1) Electrolyte imbalance Status: Resolved (2) Hyponatremia Status: Resolved (3) Allergic rhinitis Status: Chronic - Assessment and Plan (Free Text) Plan: continue present rx, medically stable
[2016-12-13 06:46] VITALS: BP 104/69; PULSE 61; RESP 18; TEMP 97.5; O2SAT 98
[2016-12-13] MEDS: Fluticasone Nasal 50 mcg/Spray NS SCH (09:12)
--- NOTE | 2016-12-13 13:54 | PCM.PYCHDC ---
Mental Status Examination - Mental Status Examination Orientation: Person, Place, Situation, Time Memory: Intact Mood: Neutral Affect: Constricted (but reactive and mood congruent) Speech: Appropriate Attention: WNL Concentration: WNL Language: Word Retrieval Association: WNL Fund of Knowledge: WNL Formal Thought Process: No Impairment Description of patient's judgement and insight: Pt has improved insight into mental and medical illness, pt was compliant with medications and unit rules and regulations, pt was going to groups, was calm, cooperative, socially appropriate, no behavioral incidents, no agitation, no aggression. Psychotic Thoughts and Behaviors: Pt denied v/a/t hallucinations, denied paranoid ideations, pt does not appear to be psychotic, and thought process is goal directed. Suicidal Ideation: No Current Homicidal Ideation?: No Plan: pt adamantly denied thoughts of harming self or others denied intent or plan. Discharge Summary - Discharge Note Reason for Hospitalization: pt was admitted for evaluation of manic/depressive symptoms, possible suicidal ideation with no intent of plan to kill herself, worsening of OCD, inability to function. Psychiatric History (includes Medical, Family, Personal Hx): see HPI Laboratory Data: 12/06/16 10:06 12/12/16 07:15 Lab Results 12/12/16 07:15: Sodium 135, Potassium 4.4, Chloride 101, Carbon Dioxide 25, Anion Gap 13, BUN 15, Creatinine 0.7, Est GFR ( Amer) > 60, Est GFR (Non- Af Amer) > 60, Random Glucose 85, Calcium 9.7, Total Bilirubin 0.3, AST 25, ALT 49, Alkaline Phosphatase 90, Total Protein 7.3, Albumin 4.3, Globulin 3.0, Albumin/Globulin Ratio 1.4 12/09/16 08:00: Sodium 130 L, Potassium 4.4, Chloride 94 L, Carbon Dioxide 24, Anion Gap 16, BUN 9, Creatinine 0.7, Est GFR ( Amer) > 60, Est GFR (Non- Af Amer) > 60, Random Glucose 102, Calcium 9.6, Total Bilirubin 0.5, AST 37, ALT 77 H, Alkaline Phosphatase 107, Total Protein 7.5, Albumin 4.5, Globulin 3.1 , Albumin/Globulin Ratio 1.5 12/06/16 10:45: Urine Opiates Screen Negative, Urine Methadone Screen Negative, Ur Barbiturates Screen Negative, Ur Phencyclidine Scrn Negative, Ur Amphetamines Screen Negative, U Benzodiazepines Scrn Negative, U Oth Cocaine Metabols Negative, U Cannabinoids Screen Negative 12/06/16 10:45: Urine Color Yellow, Urine Appearance Clear, Urine pH 7.0, Ur Specific Lupton <= 1.005, Urine Protein Negative, Urine Glucose (UA) Negative, Urine Ketones Trace H, Urine Blood Small H, Urine Nitrate Negative, Urine Bilirubin Negative, Urine Urobilinogen 0.2, Ur Leukocyte Esterase Negative, Urine RBC 0 - 2, Urine WBC 0 - 2 12/06/16 10:06: Alcohol, Quantitative < 10 12/06/16 10:06: Salicylates 13, Acetaminophen < 10.0 L 12/06/16 10:06: Sodium 130 L, Potassium 3.9, Chloride 95 L, Carbon Dioxide 22, Anion Gap 17, BUN 10, Creatinine 0.6, Est GFR ( Amer) > 60, Est GFR (Non- Af Amer) > 60, Random Glucose 104, Calcium 9.5, Total Bilirubin 0.4, AST 86 H, ALT 114 H, Alkaline Phosphatase 99, Total Protein 7.4, Albumin 4.3, Globulin 3.1 , Albumin/Globulin Ratio 1.4 12/06/16 10:06: WBC 6.6, RBC 4.06, Hgb 12.4, Hct 36.0, MCV 88.7, MCH 30.5, MCHC 34.4, RDW 13.7, Plt Count 268, MPV 9.2, Gran % 59.7, Lymph % (Auto) 28.5, Greene % (Auto) 8.0 H, Eos % (Auto) 3.5, Baso % (Auto) 0.3, Gran # 3.97, Lymph # 1.9, Greene # 0.5, Eos # 0.2, Baso # 0.02 Vital Signs Temp Pulse Resp BP Pulse Ox 12/13/16 06:45 97.5 F L 61 18 104/69 98 12/12/16 16:00 77 111/73 12/12/16 07:25 97.6 F 69 20 121/80 12/11/16 16:36 69 100/61 12/11/16 10:00 97.3 F L 74 17 110/64 12/11/16 07:38 97.7 F 70 20 96/61 L 07/15/17 19:15 97.2 F L 12/10/16 16:33 72 150/106 H 12/10/16 07:10 98.2 F 111 H 20 104/74 12/09/16 18:00 80 129/87 12/09/16 07:50 98.2 F 67 20 126/88 12/08/16 18:00 74 137/90 12/08/16 16:19 169/103 H 12/08/16 07:32 98.0 F 74 20 125/83 12/07/16 10:00 97.2 F L 67 18 12/07/16 06:57 97.8 F 74 20 95/68 L 12/06/16 16:00 62 139/88 12/06/16 13:00 18 12/06/16 11:43 97.8 F 73 15 142/87 99 12/06/16 09:43 98.1 F 80 18 138/89 100 Consultations:: List each consultation separately and include: 1. Reason for request. 2. Findings. 3. Follow-up Consultations: consult appreciated see notes for more detailed information Summary of Hospital Course include:: 1. Description of specific treatment plan utilized for patients during their course of treatmen. 2. Summarize the time- course for resolution of acute symptoms and/or regressed behaviors. 3. Describe issues identified and worked on during hospitalization. 4. Describe medication utilized. 5. Describe medical problems identified and treated. 6. Reassessment of suicide risk Summary of Hospital Course: Shortly, pt is 56yo Female with long h/o bipolar disorder, multiple hospitalizations in the past, most recent was in this facility on April 2016 , h/o suicidal attempts, was court mandated for DTP at [facility] (currently not), h/o alcohol dependence, currently collects disability for mental illness, mother of two, has 12yo low functioning autistic son (was adopted because pt was not able to control him), and 34yo son, was admitted to the psychiatric inpatient unit for evaluation and stabilization of manic/depressive episode with psychosis, possible suicidal ideation, no intent or plan, pt also had worsening of her OCD symptoms, was not able to function, was not attending DTP, pt's Lamictal was d/c abut a month ago because pt had a rash, since that time pt was feeling progressively worse, was obsessed with , needs further evaluation and stabilization and medications titration. initially patient presented with good personal hygiene, fare ADLs, pt looks younger her chronological age, has long blond hair, nice haircut, fresh manicure. patient presented to be depressed, hopeless, patient also had suicidal ideation but no plans or intent to kill herself, patient also had psychotic symptoms had feeling that she has "worm live in my face", was in her manic stage irritable, was not able to sleep for the past two days, pt also had foolish business decision like "I wanted to adopt [employer]". patient also hadworsening of her OCD symptoms. prior to this admission patient was compliant with the medications, but Lamictal was discontinued about a month prior this admission. 12/06/16 10:06 12/06/16 10:06 Lab Results 12/06/16 10:45: Urine Opiates Screen Negative, Urine Methadone Screen Negative, Ur Barbiturates Screen Negative, Ur Phencyclidine Scrn Negative, Ur Amphetamines Screen Negative, U Benzodiazepines Scrn Negative, U Oth Cocaine Metabols Negative, U Cannabinoids Screen Negative 12/06/16 10:45: Urine Color Yellow, Urine Appearance Clear, Urine pH 7.0, Ur Specific Lupton <= 1.005, Urine Protein Negative, Urine Glucose (UA) Negative, Urine Ketones Trace H, Urine Blood Small H, Urine Nitrate Negative, Urine Bilirubin Negative, Urine Urobilinogen 0.2, Ur Leukocyte Esterase Negative, Urine RBC 0 - 2, Urine WBC 0 - 2 12/06/16 10:06: Alcohol, Quantitative < 10 12/06/16 10:06: Salicylates 13, Acetaminophen < 10.0 L 12/06/16 10:06: Sodium 130 L, Potassium 3.9, Chloride 95 L, Carbon Dioxide 22, Anion Gap 17, BUN 10, Creatinine 0.6, Est GFR ( Amer) > 60, Est GFR (Non- Af Amer) > 60, Random Glucose 104, Calcium 9.5, Total Bilirubin 0.4, AST 86 H, ALT 114 H, Alkaline Phosphatase 99, Total Protein 7.4, Albumin 4.3, Globulin 3.1 , Albumin/Globulin Ratio 1.4 12/06/16 10:06: WBC 6.6, RBC 4.06, Hgb 12.4, Hct 36.0, MCV 88.7, MCH 30.5, MCHC 34.4, RDW 13.7, Plt Count 268, MPV 9.2, Gran % 59.7, Lymph % (Auto) 28.5, Greene % (Auto) 8.0 H, Eos % (Auto) 3.5, Baso % (Auto) 0.3, Gran # 3.97, Lymph # 1.9, Greene # 0.5, Eos # 0.2, Baso # 0.02 Vital Signs Temp Pulse Resp BP Pulse Ox 12/07/16 10:00 97.2 F L 67 18 12/07/16 06:57 97.8 F 74 20 95/68 L 12/06/16 16:00 62 139/88 12/06/16 13:00 18 12/06/16 11:43 97.8 F 73 15 142/87 99 12/06/16 09:43 98.1 F 80 18 138/89 100 during this hospitalization this technical document writer continued Prozac 80 mg for depression as well as for anxiety as well as OCD Lamictal was not resumed This technical document writer tried Geodon but patient didn't like that medication Abilify was started and was titrated to 10 mg a day,, for mood stabilization as well as psychotic symptoms Patient tolerated medications well, no side effects observed or reported but positive for the fact patient became less depressed, mood was stable, no manic symptoms, psychosis improved significantly. Patient was seen by primary care physician Dr. Alanis, please see notes for more detailed information. Patient was attending groups, was calm, corporative, socially appropriate, no agitation, no aggression. pt improved significantly and soon pt deemed to be ready for discharge. At the time of the discharge pt denied been depressed, denied thoughts of harming self or others, denied psychotic symptoms, and pt does not appeared to be psychotic, denied been anxious, was considered to pose no threat to self or others, will be following up at [facility], IOP program, [facility] information about follow up appointment, time and address provided to the pt, it is patient responsibility to follow up with outpatient clinic, PMD as well as specialists ( see SW note for more detailed information). In case pt will need to obtain results of studies pending at discharge pt was provided with contact information of Psychiatric Inpatient unit [phone] as well as Medical Record Department [phone]. this technical document writer provided patient with prescription; Abilify 10 mg, take half of the pill twice a day #14 with one refill for mood stabilization and psychotic symptoms Patient has enough Prozac at home, no SI prescription was not given to the patient, Prozac is for depression and anxiety as well as OCD Pt was educated about safety plan in case of worsening of symptoms or in case of suicidal or homicidal ideation call 911 or go to the nearest ER, also was educated to take meds as prescribed and stay away from drugs, pt verbalized understanding. - Diagnosis (1) Bipolar disorder, current episode mixed, severe, with psychotic features Current Visit: Yes Status: Acute (2) OCD (obsessive compulsive disorder) Current Visit: No Status: Acute - Final Diagnosis (DSM 5) Condition upon Discharge: STABLE Disposition: HOME/ ROUTINE Follow-up Treatment Plan: At the time of the discharge pt denied been depressed, denied thoughts of harming self or others, denied psychotic symptoms, and pt does not appeared to be psychotic, denied been anxious, was considered to pose no threat to self or others, will be following up at [facility], IOP program, [facility] information about follow up appointment, time and address provided to the pt, it is patient responsibility to follow up with outpatient clinic, PMD as well as specialists ( see SW note for more detailed information). In case pt will need to obtain results of studies pending at discharge pt was provided with contact information of Psychiatric Inpatient unit [phone] as well as Medical Record Department [phone]. this technical document writer provided patient with prescription; Abilify 10 mg, take half of the pill twice a day #14 with one refill for mood stabilization and psychotic symptoms Patient has enough Prozac at home, no SI prescription was not given to the patient, Prozac is for depression and anxiety as well as OCD Pt was educated about safety plan in case of worsening of symptoms or in case of suicidal or homicidal ideation call 911 or go to the nearest ER, also was educated to take meds as prescribed and stay away from drugs, pt verbalized understanding. Prescriptions/Medication Reconciliation: ARIPiprazole [Abilify] 5 mg PO 1600,2200 #14 tab ARIPiprazole [Abilify] 5 mg PO HS #14 tab ARIPiprazole [Abilify] 5 mg PO 1600 #14 tab FLUoxetine [Prozac] 80 mg PO DAILY #1 cap - Smoking Cessation Smoking Cessation Medication prescribed: No Reason for not providing: pt denied smoking - Antipsychotic Medications Pt discharged on 2 or more routine antipsychotic medications: No
== END 2016-12-13 15:17 | disposition home or self-care (01) | DRG 885 ==
LOC: ED 09:42 → ERH 12:21 → PSYC 12:33
PROVIDERS: ADMIT Psychiatry & Neurology Psychiatry; ATTEND Psychiatry & Neurology Psychiatry
DX: F31.60 Bipolar disorder, current episode mixed, unspecified (principal); E87.1 Hypo-osmolality and hyponatremia; F31.5 Bipolar disorder, current episode depressed, severe, with psychotic features; F42.9 Obsessive-compulsive disorder, unspecified; Z91.5 Personal history of self-harm; Z88.8 Allergy status to other drugs, medicaments and biological substances; F41.9 Anxiety disorder, unspecified; E66.9 Obesity, unspecified; F10.21 Alcohol dependence, in remission; Z81.8 Family history of other mental and behavioral disorders; Y90.0 Blood alcohol level of less than 20 mg/100 ml; J30.9 Allergic rhinitis, unspecified; Z68.25 Body mass index [BMI] 25.0-25.9, adult